=== PATIENT | male | born 1950 | race Caucasian/White ===

== ENCOUNTER → 2017-07-15 | Outpatient (CLI) | payer OTHER ==
[~2017-07-15] MED LIST: DIAZ2TAB PO; IBUP600T44 PO; LISI-725 PO; MULT-506 PO
--- NOTE | 2017-07-15 10:18 | DIAGNOSTIC IMAGING REPORT ---
[facility]UB CLINICAL HISTORY: Nephrolithiasis. FINDINGS: 2 AP supine abdominal radiograph are compared to study dated 07/13/2016. There is a nonobstructed abdominal bowel gas pattern noting moderate colonic fecal retention. A nonobstructing calculus projecting over the lower pole the left kidney which measures up to 9 mm, and this has minimally increased in size from 07/13/2016. An additional punctate nonobstructing calculus projects over the interpolar left kidney. No additional calculi are seen projecting over the right kidney or along the course of the ureters. Cholecystectomy clips are noted. The skeletal structures are osteopenic. The bony structures appear intact. IMPRESSION: 1. There are 2 nonobstructing left renal calculi identified as above. The larger calculus measures 9 mm and appears modestly increased in size from 2016. 2. No additional calculi are identified. 3. Moderate colonic fecal retention. Electronically signed by: Vance Fiore M.D. 07/15/2017 10:17 AM Dictated Date/Time: 07/15/2017 10:15 AM
[2017-07-15 11:34] LABS: ALT/SGPT 18 U/L (12-78); AST/SGOT 14 U/L (15-37); BLOOD UREA NITROGEN 18 mg/dl (7-18); BUN/CREATININE RATIO 15.9 (10-20); CALCIUM 9.2 mg/dl (8.5-10.1); CARBON DIOXIDE 26 mmol/L (21-32); CHLORIDE 107 mmol/L (98-107); CREATININE 1.15 mg/dl (0.60-1.40); GLUCOSE 113 mg/dl (70-99); POTASSIUM 4.8 mmol/L (3.5-5.1); SODIUM 141 mmol/L (136-145)
[2017-07-15 11:37] LABS: ALB/GLOB RATIO 0.9 (0.9-2); ALKALINE PHOSPHATASE 118 U/L (45-117); CHOLESTEROL 100 mg/dl (0-200); CHOLESTEROL/HDL RATIO 2.5; HDL CHOLESTEROL 40 mg/dl; LDL CHOLESTEROL CALCULATED 46 mg/dl; TRIGLYCERIDES 68 mg/dl (0-150); VERY LOW DENSITY LIPOPROT CALC 14 mg/dl
== END | disposition home or self-care (01) ==
LOC: C.RAD 09:33
PROVIDERS: ATTEND Urology
DX: N40.0 Benign prostatic hyperplasia without lower urinary tract symptoms (principal); I25.10 Atherosclerotic heart disease of native coronary artery without angina pectoris; E78.5 Hyperlipidemia, unspecified

== ENCOUNTER 2025-06-25 12:26 | Inpatient (IN) ==
--- NOTE | 2025-06-25 13:16 | XRay Report ---
XR chest 1V portable CLINICAL HISTORY: Sepsis COMPARISON STUDY: 03/09/2021 FINDINGS: Heart size and pulmonary vasculature are normal. Right chest port is stable. No consolidati on or pleural effusion seen. No pneumothorax. IMPRESSION: No acute findings. ACT 112: Negative or not required by law. Electronically signed by: Emmett Cervantes M.D. 06/25/2025 1:15 PM
[2025-06-25 13:35] LABS: Hematocrit (blood only) 25.9 % (42.0-52.0); Hemoglobin 7.9 g/dl (14.0-18.0); Immature Granulocytes # (auto) 0.11 K/uL (0.01-0.20); Immature Granulocytes % (auto) 0.8 %; Mean Corpuscular Hemoglobin 26.8 pg (25.0-34.0); Mean Corpuscular Volume 87.8 fL (80.0-100.0); Platelet Count 320 K/uL (130-400); RDW Standard Deviation 55.8 fL (36.4-46.3); Red Blood Count 2.95 M/uL (4.70-6.10); White Blood Count 13.51 K/ul (4.8-10.8)
[2025-06-25 13:53] LABS: Appearance Urine Clear (Clear); Glucose Urine UA 3+ (Negative)
[2025-06-25 13:59] LABS: Alanine Aminotransferase 42.0 U/L (7-52); Albumin Globulin Ratio 0.6 (0.9-2); Albumin Level 2.9 gm/dl (3.4-5.0); Alkaline Phosphatase 151.0 U/L (34-104); Anion Gap 11.0 (3-11); Bilirubin,Total 0.7 mg/dl (0.2-1.0); Blood Urea Nitrogen 28.0 mg/dl (6-23); Calcium 9.1 mg/dl (8.6-10.3); Carbon Dioxide 21.0 mmol/L (21-32); Chloride 102.0 mmol/L (98-107); Creatinine Clr Calc Pharmacy 54.6 ml/min; Globulin 5.1 gm/dl (2.5-4.0); Glucose 336.0 mg/dl (70-99(Fasting)); Magnesium 1.9 mg/dl (1.7-2.4); Potassium 4.1 mmol/L (3.5-5.1); Sodium 134.0 mmol/L (136-145); Total Protein 8.0 gm/dl (6.0-8.3)
[2025-06-25 14:00] LABS: INR 1.2 (0.9-1.1); Partial Thromboplastin Time 33 Seconds (21-31); Prothrombin Time 12.6 Seconds (9.0-12.0)
[2025-06-25 14:01] LABS: Polychromasia 1+
[2025-06-25] MEDS: PIPERACILLIN/TAZOBACTAM 4.5 GM/100 ML BAG IV ONE (14:10)
[2025-06-25] MEDS: SODIUM CHLORIDE 0.9% 1,000 ML IV ONE (14:10)
--- NOTE | 2025-06-25 14:38 | Emergency Department Note ---
Impression & Plan Acute dyspnea, Symptomatic anemia, GI bleed, Elevated procalcitonin, Hyperglycemia ED Provider Note HISTORY OF PRESENT ILLNESS: Patient is a 75-year-old male presenting with shortness of breath. Patient presents from cardiology due to abnormal vital signs. Patient reports he has been short of breath for a number of weeks. He states that he has gotten progressively more short of breath over the last week or so. He states he has had a cough for the last 3 months. He denies any measured fevers at home. His lock and dam repairer was concerned he might have pneumonia. He denies any chest pain. He reports that shortness of breath is mostly when he is up exerting himself. He does report intermittent episodes of feeling lightheaded and dizzy. He denies any abdominal pain, nausea or vomiting. He denies any obvious melena in his stool. He is on a baby aspirin daily. ROS: as above PHYSICAL EXAM: Constitutional: Patient appears in no acute distress. HENT: Head: Normocephalic and atraumatic. Eyes: EOMI, PERRL Mouth/Throat: Mucous membranes moist. Neck: Trachea midline. Neck supple. Cardiovascular: Tachycardic with regular rhythm. No murmurs, rubs or gallops. Intact distal pulses. Pulmonary/Chest: No respiratory distress. Breath sounds clear and equal bilaterally. No wheezes or rales. Abdominal: Abdomen soft, no tenderness, rebound or guarding. Rectal: Chaperoned by male nursing staff. No palpable masses or hemorrhoids. No gross melena or gross blood on glove. Hemoccult positive. Musculoskeletal: No edema, tenderness or deformity noted. Skin: Warm and dry. No rash, erythema, pallor or cyanosis Psychiatric: Appropriate mood and affect for situation. Neurological: Alert and keenly responsive. CN II-XII grossly intact, moving all extremities equally and fully. MDM: - Vitals signs showed hypotension and tachycardia. - History obtained via patient. History as above. - Chronic conditions affecting care: Iron deficiency anemia; CAD (s/p PCI); HTN; HLD; Hodgkin's lymphoma - Differential diagnoses include, but are not limited to: Congestive heart failure; acute coronary syndrome; COPD/asthma exacerbation; pulmonary edema; pulmonary embolism; pneumonia; pneumothorax; viral syndrome; anemia - Order placed for continuous cardiac monitoring. At this time, monitor showed rate of 115 bpm with normal sinus rhythm, per my interpretation. - External medical records reviewed. Oncology hematology follow-up appointment note dated 02/16/2025 was reviewed. Patient follows in the clinic for his Hodgkin's lymphoma. - EKG image interpreted by myself showed normal sinus rhythm. Rate tachycardic 112 bpm. QT 320. No acute ischemic changes. - Laboratory workup interpreted by myself showed leukocytosis (WBC 13.51); anemia (Hgb 7.9 - decreased from 11.2 on 12/22/24); elevated INR (1.2); hyponatremia (Na 134 -likely pseudohyponatremia in the setting of hyperglycemia); hyperglycemia (glucose 336); normal troponin; elevated procalcitonin (0.83); normal lactate - UA negative for infection - Blood cultures obtained - CXR image reviewed interpreted by myself is made for pneumonia, per my interpretation. - Rectal exam was Hemoccult positive. Patient given 1 L normal saline in the emergency department with improvement in his blood pressures to the low 100s systolic. He was empirically given IV Zosyn for antibiotic coverage. 80 mg IV Protonix ordered. - Type and screen ordered. - Discussion was had with transplant case manager about patient's case and need for admission - Hospitalist consulted for admission - Patient admitted to [facility] for further evaluation and management. 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 H/O excision of mass (12/14/21) Laparoscopic - Jerome Thomason DO converted to Open Biopsy Retroperitoneal Mass - Jerome Thomason DO 12/14/2021 Hypertension (Chronic) Murmur BPH (benign prostatic hyperplasia) Nephrolithiasis Encounter for pre-operative examination Iron refractory iron deficiency anemia SOB (shortness of breath) Arthritis Heart disease Gout Hypercholesterolemia Lymphoma Infection due to Port-A-Cath Encounter for pre-operative examination Retroperitoneal mass Port-A-Cath in place (11/02/20) right side Medical History LV dysfunction BPH (benign prostatic hyperplasia) Murmur Neuropathy Muscle spasm Hx of sleep apnea Hodgkins lymphoma Generalized weakness History of gout Myocardial infarction CAD (coronary artery disease) History of kidney stones Anemia Hyperlipidemia Hypertension Surgical History History of removal of Port-a-Cath S/P lymph node biopsy (09/15/20) History of esophagogastroduodenoscopy (EGD) History of colonoscopy with polypectomy History of tonsillectomy History of cholecystectomy History of wisdom tooth extraction History of tooth extraction History of bilateral cataract extraction History of cardiac cath Family History Uncle Cancer Mother Heart disease Father Hypertension Other No family history of adverse response to anesthesia Social History Smoking Status: Former smoker Second Hand Exposure: No; Do You Dip or Chew Tobacco: No; Hx Alcohol Use: No Hx Substance Use: No Preferred Language: [place] African Communication Ability: Effective 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: No Beliefs That Will Affect Care: None marital status: Current Living Situation: Spouse current occupational status: employed 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 How many Children do You have: 4 Feels Safe at Home: Yes Assistive Devices: Glasses Allergies Allergies Allergy/AdvReac Type Severity Reaction Status Date / Time No Known Allergies Allergy Mild Verified 01/28/25 14:44 Home Meds Home Medications Medication Instructions Recorded Confirmed aspirin 81 mg tablet,delayed 81 mg PO QAM 04/27/20 06/25/25 release diazepam 2 mg tablet 2 mg PO HS PRN LEG CRAMPING 04/27/20 06/25/25 metoprolol succinate 25 mg 25 mg PO QAM 04/27/20 06/25/25 tablet,extended release 24 hr (Toprol XL) pravastatin 20 mg tablet 20 mg PO HS 04/27/20 06/25/25 coQ10 (ubiquinol) 200 mg capsule 200 mg PO QAM 03/02/21 06/25/25 fexofenadine 180 mg tablet 180 mg PO HS 11/14/21 06/25/25 (Saniya Allergy) sacubitril 49 mg-valsartan 51 mg 1 tab PO BID 03/14/22 09/26/25 tablet (Entresto) acetaminophen 650 mg 650 mg PO Q12H 06/25/25 06/25/25 tablet,extended release dapagliflozin propanediol 10 mg 10 mg PO QAM 06/25/25 06/25/25 tablet (Farxiga) vitamin B complex 1 cap PO QAM 06/25/25 06/25/25 Results & Data (ED) Vital Signs Vital Signs - 24 hr 06/25/25 12:35 06/25/25 12:50 06/25/25 12:58 Temperature 36.7 C Temperature Source Oral Pulse Rate 119 H Pulse Rate [Left Finger] 79 Respiratory Rate 22 20 Blood Pressure 77/51 L Blood Pressure [Left Arm] 77/59 L Blood Pressure Mean 59 Blood Pressure Mean [Left Arm] 65 Blood Pressure Position Sitting Pulse Oximetry 97 97 Oxygen Delivery Method Room Air Room Air Sepsis Recent Fever Within 48 Hours No Sepsis New/Unexplained Change in Mental Status No Sepsis Action Taken by Nursing Physician Notified 06/25/25 13:27 06/25/25 14:15 06/25/25 14:20 Temperature Temperature Source Pulse Rate 115 H Pulse Rate [Left Finger] 94 H Respiratory Rate 20 Blood Pressure Blood Pressure [Left Arm] 105/58 L Blood Pressure Mean Blood Pressure Mean [Left Arm] 73 Blood Pressure Position Pulse Oximetry 98 98 Oxygen Delivery Method Room Air Sepsis Recent Fever Within 48 Hours Sepsis New/Unexplained Change in Mental Status Sepsis Action Taken by Nursing Laboratory Data 06/25/25 13:08 06/25/25 13:08 Lab Results 06/25/25 06/25/25 06/25/25 Range/Units 13:08 13:42 14:40 WBC 13.51 H (4.8-10.8) K/ul RBC 2.95 L (4.70-6.10) M/uL Hgb 7.9 L (14.0-18.0) g/dl Hct 25.9 L (42.0-52.0) % MCV 87.8 (80.0-100.0) fL MCH 26.8 (25.0-34.0) pg MCHC 30.5 L (32.0-36.0) g/dL RDW Std Deviation 55.8 H (36.4-46.3) fL RDW Coeff of Derek 17.4 H (11.5-14.5) % Plt Count 320 (130-400) K/uL MPV 9.4 (9.4-12.4) fL Immature Gran % (Auto) 0.8 % Neut % (Auto) 86.3 % Lymph % (Auto) 5.6 % [place] % (Auto) 6.7 % Eos % (Auto) 0.2 % Baso % (Auto) 0.4 % Neut # (Auto) 11.67 H (1.40-6.50) K/uL Lymph # (Auto) 0.75 L (1.20-3.40) K/uL [place] # (Auto) 0.90 H (0.11-0.59) K/uL Eos # (Auto) 0.03 (0.00-0.50) K/uL Baso # (Auto) 0.05 (0.00-0.20) K/uL Immature Gran # (Auto) 0.11 (0.01-0.20) K/uL Polychromasia 1+ PT 12.6 H (9.0-12.0) Seconds INR 1.2 H (0.9-1.1) APTT 33 H (21-31) Seconds PTT Ratio 1.2 Sodium 134 L (136-145) mmol/L Potassium 4.1 (3.5-5.1) mmol/L Chloride 102 (98-107) mmol/L Carbon Dioxide 21 (21-32) mmol/L Anion Gap 11 (3-11) BUN 28 H (6-23) mg/dl Creatinine 1.17 (0.6-1.4) mg/dl Est Cr Clr Drug Dosing 54.6 ml/min eGFR 65.01 BUN/Creatinine Ratio 23.9 H (10-20) Glucose 336 H* (70-99(Fasting)) mg/dl Lactate 1.7 (0.4-2.0) mmol/L Calcium 9.1 (8.6-10.3) mg/dl Magnesium 1.9 (1.7-2.4) mg/dl Total Bilirubin 0.7 (0.2-1.0) mg/dl AST 28 (13-39) U/L ALT 42 (7-52) U/L Alkaline Phosphatase 151 H (34-104) U/L Troponin I High Sens 6.6 (0-20) pg/ml Total Protein 8.0 (6.0-8.3) gm/dl Albumin 2.9 L (3.4-5.0) gm/dl Globulin 5.1 H (2.5-4.0) gm/dl Albumin/Globulin Ratio 0.6 L (0.9-2) Procalcitonin 0.83 H (0-0.5) ng/ml Urine Color Dark Yellow Urine Appearance Clear (Clear) Urine pH 5.5 (4.5-7.5) Ur Specific [place] 1.032 H (1.000-1.030) Urine Protein Negative (Negative) Urine Glucose (UA) 3+ H (Negative) Urine Ketones Negative (Negative) Urine Blood Negative (Negative) Urine Nitrite Negative (Negative) Urine Bilirubin Negative (Negative) Urine Urobilinogen Negative (Negative) Ur Leukocyte Esterase Negative (Negative) Urine Comment POC Stool Occult Blood Positive A (Negative) Administered Medications Discontinued Medications Piperacillin Sod/Tazobactam Sod (Zosyn) 4.5 gm in 100 mls @ 200 mls/hr IV NOW ONE; Protocol Stop: 06/25/25 14:14 Last Admin: 06/25/25 14:10 Dose: 200 mls/hr Documented By: JONG Sodium Chloride (Nss) 1,000 mls @ 999 mls/hr IV .Q1H1M ONE Stop: 06/25/25 14:45 Last Admin: 06/25/25 14:10 Dose: 999 mls/hr Documented By: JONG Imaging Data Radiologist's Impression: Chest X-Ray 06/25/25 12:50 XR chest 1V portable CLINICAL HISTORY: Sepsis COMPARISON STUDY: 03/09/2021 FINDINGS: Heart size and pulmonary vasculature are normal. Right chest port is stable. No consolidation or pleural effusion seen. No pneumothorax. IMPRESSION: No acute findings. ACT 112: Negative or not required by law. Electronically signed by: Emmett Cervantes M.D. 06/25/2025 1:15 PM Discharge Plan Visit Data Chief Complaint: Referred by Doctor Stated Complaint: SOB DOC REFERRAL ED Provider: Luba Baez Discharge Problem: Acute dyspnea, Symptomatic anemia, GI bleed, Elevated procalcitonin, Hyperglycemia Condition: Fair Forms Stand Alone Forms: My [employer] Prescriptions Prescriptions: No Action fexofenadine [Saniya Allergy] 180 mg tablet 180 mg PO HS aspirin 81 mg Tablet,Delayed Release (Dr/Ec) 81 mg PO QAM diazepam 2 mg Tablet 2 mg PO HS PRN (Reason: LEG CRAMPING) pravastatin 20 mg Tablet 20 mg PO HS metoprolol succinate [Toprol XL] 25 mg Tablet Extended Release 24 Hr 25 mg PO QAM coQ10 (ubiquinol) 200 mg Capsule 200 mg PO QAM sacubitril-valsartan [Entresto] 49-51 mg Tablet 1 tab PO BID dapagliflozin propanediol [Farxiga] 10 mg tablet 10 mg PO QAM acetaminophen [Tylenol Arthritis] 650 mg Tablet Extended Release 650 mg PO Q12H vitamin B complex Capsule 1 cap PO QAM Referrals Referrals: Dahlia Carias DO [Primary Care Provider] -
--- NOTE | 2025-06-25 15:49 | History & Physical Report ---
Date of Service June 25, 2025 Assessment & Plan (1) Dyspnea on effort: (2) Acute on chronic systolic CHF (congestive heart failure): (3) Iron refractory iron deficiency anemia: (4) CAD (coronary artery disease): (5) Hodgkins lymphoma: (6) Blood loss anemia: (7) Melena: Plan Is a 75-year-old male with a history of Hodgkin's lymphoma status postchemotherapy, currently in remission, congestive heart failure, CAD status post stent, hypertension, who presents to the hospital on account of worsening shortness of breath. Found to have melena and significant drop in hemoglobin 1. Melena: Patient presents to the hospital with worsening shortness of breath over the past several weeks. Tested positive for occult stool Will consult GI Clear liquid diet, n.p.o. after midnight IV Protonix 2. Blood loss anemia: In November 2024, his hemoglobin was 11.2 Presents today with a hemoglobin of 7.9 Given his significant cardiac history, will transfuse 1 unit of blood to keep it above 8 3. Iron deficiency anemia: Has received iron infusion in the past Will recheck his iron studies Will transfuse iron if necessary 4. Acute on chronic congestive heart failure: Follows up with cardiology outpatient According to the patient they did 2D echo not too long ago He is on Entresto and Farxiga at home Will hold off on diuretics for now 5. CAD: Status post stent Currently on aspirin, will hold in view of GI bleed Continue statin Full code History of Present Illness Chief Complaint: Shortness of breath Primary Care Provider: Dahlia Park Is a 75-year-old male with a history of mild Hodgkin's lymphoma status postchemotherapy, currently in remission, coronary artery disease status post stent, hypertension obstructive sleep apnea arthritis who presents to the hospital today on account of worsening shortness of breath over the past several weeks. According to the patient, he has been having shortness of breath for the past several weeks, worse on exertion. He follows up with cardiology for his routine visits and during the last visit they did echo and some blood work. The revenue liaison told him that his hemoglobin was low and asked him to come to the hospital for further evaluation. Initially they thought he was having pneumonia due to shortness of breath. Here in the emergency department his hemoglobin was 7.9 down from 11.2 in November 2024 his stool was positive for occult blood blood pressure 105/58 pulse 115. Chest x-ray did not show any evidence of acute findings. He will be admitted to the hospital for further management. Allergies Allergy/AdvReac Type Severity Reaction Status Date / Time No Known Allergies Allergy Mild Verified 01/28/25 14:44 Home Medications Medication Instructions Recorded Confirmed Type aspirin 81 mg tablet,delayed 81 mg PO QAM 04/27/20 06/25/25 History release diazepam 2 mg tablet 2 mg PO HS PRN LEG CRAMPING 04/27/20 06/25/25 History metoprolol succinate 25 mg 25 mg PO QAM 04/27/20 06/25/25 History tablet,extended release 24 hr (Toprol XL) pravastatin 20 mg tablet 20 mg PO HS 04/27/20 06/25/25 History coQ10 (ubiquinol) 200 mg capsule 200 mg PO QAM 03/02/21 06/25/25 History fexofenadine 180 mg tablet 180 mg PO HS 11/14/21 06/25/25 History (Saniya Allergy) sacubitril 49 mg-valsartan 51 mg 1 tab PO BID 12/11/21 06/25/25 History tablet (Entresto) acetaminophen 650 mg 650 mg PO Q12H 06/25/25 06/25/25 History tablet,extended release dapagliflozin propanediol 10 mg 10 mg PO QAM 06/25/25 06/25/25 History tablet (Farxiga) vitamin B complex 1 cap PO QAM 06/25/25 06/25/25 History Past Med/Surg History Problem List Melena Blood loss anemia Acute on chronic systolic CHF (congestive heart failure) Dyspnea on effort 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 H/O excision of mass (12/14/21) Laparoscopic - Jerome Thomason DO converted to Open Biopsy Retroperitoneal Mass - Jerome Thomason DO 12/14/2021 Hypertension (Chronic) Murmur BPH (benign prostatic hyperplasia) Nephrolithiasis Encounter for pre-operative examination Iron refractory iron deficiency anemia SOB (shortness of breath) Arthritis Heart disease Gout Hypercholesterolemia Lymphoma Infection due to Port-A-Cath Encounter for pre-operative examination Retroperitoneal mass Port-A-Cath in place (11/02/20) right side Medical History LV dysfunction BPH (benign prostatic hyperplasia) Murmur Neuropathy Muscle spasm Hx of sleep apnea Hodgkins lymphoma Generalized weakness History of gout Myocardial infarction CAD (coronary artery disease) History of kidney stones Anemia Hyperlipidemia Hypertension Surgical History History of removal of Port-a-Cath S/P lymph node biopsy (09/15/20) History of esophagogastroduodenoscopy (EGD) History of colonoscopy with polypectomy History of tonsillectomy History of cholecystectomy History of wisdom tooth extraction History of tooth extraction History of bilateral cataract extraction History of cardiac cath Family History Uncle Cancer Mother Heart disease Father Hypertension Other No family history of adverse response to anesthesia Social History Smoking Status: Former smoker Second Hand Exposure: No; Do You Dip or Chew Tobacco: No; Hx Alcohol Use: No Hx Substance Use: No Preferred Language: [place]ijani Communication Ability: Effective Setter Cold Rolling Machine Required: No Beliefs That Will Affect Care: None marital status: Current Living Situation: Spouse 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 Physical Exam Physical Exam: The patient is awake, alert and oriented 3, well developed and well nourished, normocephalic and atraumatic, lying in bed and in no acute distress. HEENT--PERRL, EOMI, mucous membranes and oropharynx mildly dry Neck--supple. No JVD. No bruits. Thyroid normal, trachea midline, no adenopathy. Heart--normal S1 and S2. No murmurs, rubs or gallops. Lungs--clear bilaterally, no respiratory distress, no accessory muscle use. Abdomen--normal bowel sounds and soft. Extremities--no cyanosis or clubbing. No edema. Dermatologic--normal skin turgor, normal color, no abnormal lymph nodes, no rash. Neurologic--cranial nerves II through XII grossly intact. Rheumatologic--normal range of motion. Psychiatric--normal affect. Results & Data Results & Data Vital Signs (Past 12 Hours) Vital Signs Temp Pulse Pulse Resp BP BP Pulse Ox 06/25/25 14:20 115 H 06/25/25 14:15 94 H 20 105/58 L 98 06/25/25 13:27 98 06/25/25 12:58 79 20 77/59 L 97 06/25/25 12:50 06/25/25 12:35 98.1 F 119 H 22 77/51 L 97 O2 Del Method 06/25/25 14:20 06/25/25 14:15 06/25/25 13:27 Room Air 06/25/25 12:58 06/25/25 12:50 Room Air 06/25/25 12:35 Room Air PG Care Time/CCT Total # of Minutes Spent Total Time Spent with Patient: Total time spent is greater than 50% in coordination of care (as documented) at patient's floor/unit and/or counseling patient: Coding Level of Care Code 32616 INT INP/OBS CARE 3/75MIN Diagnoses Dyspnea on effort R06.09 Acute on chronic systolic CHF (congestive heart failure) I50.23 Iron refractory iron deficiency anemia D50.8 CAD (coronary artery disease) I25.10 Hodgkins lymphoma C81.90 Blood loss anemia D50.0 Melena K92.1 Time Spent (min) 75
[2025-06-25] MEDS ORDERED: SODIUM CHLORIDE 0.9% 100 ML IV PRN (18:42)
[2025-06-25] MEDS: ACETAMINOPHEN 325 MG TAB PO PRN (21:09)
[2025-06-25] MEDS: SODIUM CHLORIDE 0.9% 1,000 ML IV SCH (21:12)
[2025-06-25] MEDS: PRAVASTATIN SOD 20 MG TAB PO SCH (21:13)
[2025-06-26 03:34] LABS: Hematocrit (blood only) 25.4 % (42.0-52.0); Hemoglobin 7.7 g/dl (14.0-18.0)
[2025-06-26] MEDS ORDERED: SODIUM CHLORIDE 0.9% 100 ML IV PRN (04:45)
[2025-06-26] MEDS: METOPROLOL SUCC 25MG EXT REL TAB PO SCH (08:26)
[2025-06-26 09:12] LABS: Hematocrit (blood only) 29.5 % (42.0-52.0); Hemoglobin 8.8 g/dl (14.0-18.0)
--- NOTE | 2025-06-26 09:46 | Hospitalist Progress Note ---
Date of Service June 26, 2025 Assessment & Plan (1) Dyspnea on effort: (2) Acute on chronic systolic CHF (congestive heart failure): (3) Iron refractory iron deficiency anemia: (4) CAD (coronary artery disease): (5) Hodgkins lymphoma: (6) Blood loss anemia: (7) Melena: Plan Is a 75-year-old male with a history of Hodgkin's lymphoma status postchemotherapy, currently in remission, congestive heart failure, CAD status post stent, hypertension, who presents to the hospital on account of worsening shortness of breath. Found to have melena and significant drop in hemoglobin 1. Melena: Patient presents to the hospital with worsening shortness of breath over the past several weeks. Tested positive for occult stool Will consult GI Clear liquid diet, n.p.o. after midnight IV Protonix 2. Blood loss anemia: In November 2024, his hemoglobin was 11.2 Presents with a hemoglobin of 7.9 Given his significant cardiac history, will transfuse 1 unit of blood to keep it above 8 Repeat Hb this morning 8 3. Iron deficiency anemia: Has received iron infusion in the past Will recheck his iron studies Will transfuse iron if necessary 4. Acute on chronic congestive heart failure: Follows up with cardiology outpatient According to the patient they did 2D echo not too long ago He is on Entresto and Farxiga at home Will hold off on diuretics for now 5. CAD: Status post stent Currently on aspirin, will hold in view of GI bleed Continue statin Full code Admission and Anticipated Discharge Date Admission Date: June 25, 2025 Subjective patient seen and examined, no new complaints Review of Systems Review of Systems: All systems reviewed are negative, apart from the ones contained in the history. Physical Exam Physical Exam: The patient is awake, alert and oriented 3, well developed and well nourished, normocephalic and atraumatic, lying in bed and in no acute distress. HEENT--PERRL, EOMI, mucous membranes and oropharynx mildly dry Neck--supple. No JVD. No bruits. Thyroid normal, trachea midline, no adenopathy. Heart--normal S1 and S2. No murmurs, rubs or gallops. Lungs--clear bilaterally, no respiratory distress, no accessory muscle use. Abdomen--normal bowel sounds and soft. Extremities--no cyanosis or clubbing. No edema. Dermatologic--normal skin turgor, normal color, no abnormal lymph nodes, no rash. Neurologic--cranial nerves II through XII grossly intact. Rheumatologic--normal range of motion. Psychiatric--normal affect. Results & Data Results & Data Vital Signs (Past 12 Hours) Vital Signs Temp Pulse Resp BP Pulse Ox O2 Del Method 06/26/25 08:03 Room Air 06/26/25 07:30 98.4 F 88 20 103/66 06/26/25 07:10 86 06/26/25 06:30 98.2 F 88 99/64 L 96 06/26/25 06:00 98.2 F 87 16 102/65 97 06/26/25 05:45 98.2 F 88 16 102/66 96 06/26/25 05:45 98.4 F 87 16 102/66 96 06/26/25 05:27 98.2 F 88 16 104/67 96 06/26/25 02:02 98.2 F 84 16 93/59 L 96 06/26/25 01:00 98.1 F 84 16 91/57 L 97 06/26/25 00:37 94 H 06/26/25 00:00 98.2 F 84 16 89/56 L 96 06/25/25 23:59 98.2 F 84 16 89/56 L 96 06/25/25 23:30 98.6 F 90 16 90/70 L 96 06/25/25 23:29 97.9 F 90 16 91/57 L 96 06/25/25 23:15 98.6 F 90 16 88/57 L 97 06/25/25 23:00 98.6 F 86 16 96/61 L 96 PG Care Time/CCT Total # of Minutes Spent Total Time Spent with Patient: Total time spent is greater than 50% in coordination of care (as documented) at patient's floor/unit and/or counseling patient: Coding Level of Care Code 64233 SUB INP/OBS CARE 2/35MIN Diagnoses Dyspnea on effort R06.09 Acute on chronic systolic CHF (congestive heart failure) I50.23 Iron refractory iron deficiency anemia D50.8 CAD (coronary artery disease) I25.10 Hodgkins lymphoma C81.90 Blood loss anemia D50.0 Melena K92.1 Time Spent (min) 35
--- NOTE | 2025-06-26 09:57 | Gastrointestinal Consultation ---
Date of Consultation June 26, 2025 Assessment & Plan (1) Blood loss anemia: (2) Heme positive stool: Patient admitted with clinically significant anemia. He has not had any gross GI bleeding but does have heme positive stools. He is hemodynamically stable and does not appear to be having an active GI bleed. I am concerned that he has been having a slow GI bleed question secondary from peptic ulcer disease. We will plan for an EGD this morning. He is NPO. He is aware of the risks of the procedure and is agreeable to proceeding. Consent was obtained and is on the chart. History of Present Illness Reason for Consultation: GI bleed Attending Physician: Toby Davis MD History of Present Illness Patient is a very pleasant 75-year-old gentleman with multiple medical problems admitted with progressive shortness of breath and fatigue. He states his symptoms actually started in February but over the summer got progressively worse. He states recently he is unable to walk from 1 room in his house to another without significant shortness of breath. He presented to the emergency room. He was found to be anemic with a hemoglobin of 7.9. BUN elevated at 27. He denies any melanotic stools. He states he did have some looser stools on and Saturday. Normally he is somewhat constipated. He states his appetite has been down over the past several weeks. He has not had any abdominal pain, nausea, or vomiting. He takes a baby aspirin daily but denies any other NSAID use. His last colonoscopy was about 6 years ago. He has never had an endoscopy. Allergies Allergy/AdvReac Type Severity Reaction Status Date / Time No Known Allergies Allergy Mild Verified 01/28/25 14:44 Home Medications Medication Instructions Recorded Confirmed Type aspirin 81 mg tablet,delayed 81 mg PO QAM 04/27/20 06/25/25 History release diazepam 2 mg tablet 2 mg PO HS PRN LEG CRAMPING 04/27/20 06/25/25 History metoprolol succinate 25 mg 25 mg PO QAM 04/27/20 06/25/25 History tablet,extended release 24 hr (Toprol XL) pravastatin 20 mg tablet 20 mg PO HS 04/27/20 06/25/25 History coQ10 (ubiquinol) 200 mg capsule 200 mg PO QAM 03/02/21 06/25/25 History fexofenadine 180 mg tablet 180 mg PO HS 11/14/21 06/25/25 History (Saniya Allergy) sacubitril 49 mg-valsartan 51 mg 1 tab PO BID 12/11/21 06/25/25 History tablet (Entresto) acetaminophen 650 mg 650 mg PO Q12H 06/25/25 06/25/25 History tablet,extended release dapagliflozin propanediol 10 mg 10 mg PO QAM 06/25/25 06/25/25 History tablet (Farxiga) vitamin B complex 1 cap PO QAM 06/25/25 06/25/25 History Patient History Medical History LV dysfunction BPH (benign prostatic hyperplasia) Murmur Neuropathy Muscle spasm Hx of sleep apnea Hodgkins lymphoma Generalized weakness History of gout Myocardial infarction CAD (coronary artery disease) History of kidney stones Anemia Hyperlipidemia Hypertension Surgical History History of removal of Port-a-Cath S/P lymph node biopsy (09/15/20) History of esophagogastroduodenoscopy (EGD) History of colonoscopy with polypectomy History of tonsillectomy History of cholecystectomy History of wisdom tooth extraction History of tooth extraction History of bilateral cataract extraction History of cardiac cath Family History Uncle Cancer Mother Heart disease Father Hypertension Other No family history of adverse response to anesthesia Social History Smoking Status: Former smoker Second Hand Exposure: No; Do You Dip or Chew Tobacco: No; Hx Alcohol Use: No Hx Substance Use: No Preferred Language: Malay Communication Ability: Effective 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 Line Photo Inspector Required: No Beliefs That Will Affect Care: Yarsanism marital status: Current Living Situation: Spouse Current Living Situation Comment: lives with at home current occupational status: employed 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 How many Children do You have: 4 Feels Safe at Home: Yes Assistive Devices: Cane and Glasses Physical Exam Eyes: PERRL, conjunctivae normal, anicteric sclerae ENMT: external ear and nose normal, oropharynx normal Respiratory: normal respiratory effort, lungs clear to auscultation Cardiovascular: RRR, no murmur, no edema Gastrointestinal (Abdomen): normal bowel sounds, soft, nontender, no hepatosplenomegaly Musculoskeletal: no cyanosis or clubbing, extremities motor strength 5/5 Skin: no rashes, warm and dry Results & Data Vital Signs (Past 12 Hours) Vital Signs Temp Pulse Resp BP Pulse Ox O2 Del Method 06/26/25 08:03 Room Air 06/26/25 07:30 36.9 C 88 20 103/66 06/26/25 07:10 86 06/26/25 06:30 36.8 C 88 99/64 L 96 06/26/25 06:00 36.8 C 87 16 102/65 97 06/26/25 05:45 36.8 C 88 16 102/66 96 06/26/25 05:45 36.9 C 87 16 102/66 96 06/26/25 05:27 36.8 C 88 16 104/67 96 06/26/25 02:02 36.8 C 84 16 93/59 L 96 06/26/25 01:00 36.7 C 84 16 91/57 L 97 06/26/25 00:37 94 H 06/26/25 00:00 36.8 C 84 16 89/56 L 96 06/25/25 23:59 36.8 C 84 16 89/56 L 96 06/25/25 23:30 37.0 C 90 16 90/70 L 96 06/25/25 23:29 36.6 C 90 16 91/57 L 96 06/25/25 23:15 37.0 C 90 16 88/57 L 97 06/25/25 23:00 37.0 C 86 16 96/61 L 96 PG Care Time/CCT Total # of Minutes Spent Total Time Spent with Patient: Total time spent is greater than 50% in coordination of care (as documented) at patient's floor/unit and/or counseling patient: [place] [address] IN/OBS CONSULT LVL 4,60M Patient Type New Diagnoses Blood loss anemia D50.0 Heme positive stool R19.5
--- NOTE | 2025-06-26 10:54 | Anesthesiology Consultation ---
Date of Service June 26, 2025 Assessment & Plan Chart Review Chart Review: Acceptable Risk for Surgery and Patient NOT seen in Pre Admission Testing Consults Requested none ASA [id number] Proposed Anesthesia Anesthesia Type: General History Surgery Operation Date: 06/26/25 11:30 Proposed Procedures p EGD EMR Alfreda Gant DO Height/Weight Height: 5 ft 9 in Weight: 82.3 kg Allergies Allergy/AdvReac Type Severity Reaction Status Date / Time No Known Allergies Allergy Mild Verified 01/28/25 14:44 Medications Home Medications Medication Instructions Recorded Confirmed Last Taken aspirin 81 mg tablet,delayed 81 mg PO QAM 04/27/20 06/25/25 06/25/25 release diazepam 2 mg tablet 2 mg PO HS PRN LEG CRAMPING 04/27/20 06/25/25 06/24/25 metoprolol succinate 25 mg 25 mg PO QAM 04/27/20 06/25/25 06/25/25 tablet,extended release 24 hr (Toprol XL) pravastatin 20 mg tablet 20 mg PO HS 04/27/20 06/25/25 06/24/25 coQ10 (ubiquinol) 200 mg capsule 200 mg PO QAM 03/02/21 06/25/25 06/25/25 fexofenadine 180 mg tablet 180 mg PO HS 11/14/21 06/25/25 06/25/25 (Saniya Allergy) sacubitril 49 mg-valsartan 51 mg 1 tab PO BID 12/11/21 06/25/25 06/25/25 tablet (Entresto) acetaminophen 650 mg 650 mg PO Q12H 06/25/25 06/25/25 06/25/25 tablet,extended release dapagliflozin propanediol 10 mg 10 mg PO QAM 06/25/25 06/25/25 06/25/25 tablet (Farxiga) vitamin B complex 1 cap PO QAM 06/25/25 06/25/25 06/25/25 Active Medications Generic Name Dose Route Start Last Admin Trade Name Freq PRN Reason Stop Dose Admin Acetaminophen 650 mg 06/25/25 18:42 06/25/25 21:09 Acetaminophen 325 Mg Tab PO 07/25/25 18:41 650 mg Q4H PRN Administration Pain or Fever Sodium Chloride 1,000 mls @ 80 mls/hr 06/25/25 18:42 06/26/25 08:26 Nss IV 06/28/25 18:41 80 mls/hr .[id number] SINAN Administration Metoprolol Succinate 25 mg 06/26/25 09:00 06/26/25 08:26 Metoprolol Succ 25mg Ext Rel Tab PO 07/26/25 08:59 25 mg QAM SINAN Administration Pravastatin Sodium 20 mg 06/25/25 21:00 06/25/25 21:13 Pravastatin Sod 20 Mg Tab PO 07/25/25 20:59 20 mg HS SINAN Administration Past Medical History Medical History LV dysfunction EF was 25-30% in 09/2020- improved to 45% on 10/26/21 ECHO BPH (benign prostatic hyperplasia) Murmur follows with Dr. Jackman Neuropathy feet Muscle spasm Periodic, diffuse throughout all of body > reason for diazepam Hx of sleep apnea "no longer needs" CPAP after 60lbs weight loss Hodgkins lymphoma Dx 08/2020- Follows with Dr. Macario Villafuerte, no chemo since March 2021 Generalized weakness History of gout Myocardial infarction 2016 > stents CAD (coronary artery disease) S/p stents x2 to prox and mid RCA; total prox LAD occlusion with right to left collaterals (2015)- follows with Dr. Jackman History of kidney stones passed on own Anemia Hyperlipidemia Hypertension ASCVD Ao Obese ICM Hx/o CHF Exercise / Class Metabolic Activity III < 4 Walking/Shop/Light housework Past Family History Family History Uncle Cancer Mother Heart disease Father Hypertension Other No family history of adverse response to anesthesia Past Surgical History Surgical History History of removal of Port-a-Cath Left A port removal (03/03/21): MAC at [facility] S/P lymph node biopsy (09/15/20) Diagnostic Laparoscopy, convert to Open Lymph Node Biopsy Dr. Thomason 09/15/2020 History of esophagogastroduodenoscopy (EGD) History of colonoscopy with polypectomy History of tonsillectomy History of cholecystectomy History of wisdom tooth extraction History of tooth extraction History of bilateral cataract extraction History of cardiac cath 2016 @ [facility] (stents x2) Past Anesthesia History No Hx of Anesthesia Complications and No Family Hx of Anesthesia Complications History of PONV No Hx of PONV and No Hx of Motion Sickness Social History Smoking Status: Former smoker tobacco type: cigarettes Do You Dip or Chew Tobacco: No Hx Alcohol Use: No Hx Substance Use: No substance use type: does not use Physical Exam Vital Signs Last Vital Signs Temp 36.9 C 06/26/25 07:30 Pulse 88 06/26/25 07:30 Resp 20 06/26/25 07:30 BP 103/66 06/26/25 07:30 Pulse Ox 96 06/26/25 06:30 O2 Del Method Room Air 06/26/25 08:03 Testing Laboratory Results 06/26/25 08:54 06/25/25 13:08 PT 12.6 Seconds (9.0-12.0) H 06/25/25 13:08 INR 1.2 (0.9-1.1) H 06/25/25 13:08 APTT 33 Seconds (21-31) H 06/25/25 13:08 Urine Color Dark Yellow 06/25/25 13:42 Urine Appearance Clear (Clear) 06/25/25 13:42 Urine pH 5.5 (4.5-7.5) 06/25/25 13:42 Ur Specific [facility] 1.032 (1.000-1.030) H 06/25/25 13:42 Urine Protein Negative (Negative) 06/25/25 13:42 Urine Glucose (UA) 3+ (Negative) H 06/25/25 13:42 Urine Ketones Negative (Negative) 06/25/25 13:42 Urine Nitrite Negative (Negative) 06/25/25 13:42 Ur Leukocyte Esterase Negative (Negative) 06/25/25 13:42 Blood Type B Positive 06/25/25 18:18 Antibody Screen NEGATIVE 06/25/25 18:18 Electrocardiogram Date: 06/25/25 Findings: + LVH and + ST @ (@ 112;LAD;septal infarct , age ?) Chest X-Ray Date: 06/25/25 Findings: + NAD Echocardiogram Date: 10/26/21 EF: 45% LV Function: dysfunctional (LV mildly dilated) RWMA: + hypokinetic Other Findings: + diastolic dysfunction (Grade 1) Valvular Disease: + MR (moderate MR) TR-mild
[2025-06-26] MEDS ORDERED: PROPOFOL IV EMULSION 10 MG/ML 20 ML VIAL IV ONE (10:57)
[2025-06-26] MEDS ORDERED: LIDOCAINE 2% 2 ML VIAL/AMP(20MG/ML) INFIL ONE (10:57)
[2025-06-26] MEDS ORDERED: ONDANSETRON INJ 2 MG/ML 2 ML VIAL ONE (10:57)
[2025-06-26] MEDS ORDERED: SUCCINYLCHOLINE CHLORIDE 20 MG/ML 10 ML VIAL IV ONE (10:57)
[2025-06-26] MEDS ORDERED: MIDAZOLAM HCL 1 MG/ML 2ML VIAL ONE (10:58)
[2025-06-26] MEDS ORDERED: PHENYLEPHRINE 100MCG/ML 5ML SYR ONE ×2 (11:06→11:46)
[2025-06-26] MEDS ORDERED: ETOMIDATE 2 MG/ML 20 ML VIAL IV ONE (11:06)
[2025-06-26] MEDS ORDERED: FLUMAZENIL 0.1 MG/1 ML 10 ML VIAL IV PRN (11:23)
[2025-06-26] MEDS ORDERED: ATROPINE SULFATE 0.1 MG/ML 10ML SYR IV PRN (11:23)
[2025-06-26] MEDS ORDERED: ONDANSETRON INJ 2 MG/ML 2 ML VIAL IV PRN (11:23)
[2025-06-26] MEDS ORDERED: NALOXONE HCL 0.4 MG/1 ML VIAL/CARP IV PRN (11:23)
[2025-06-26] MEDS ORDERED: PROMETHAZINE HCL 6.25 MG in SODIUM CHLORIDE 0.9% 50 ML IV PRN (11:23)
--- NOTE | 2025-06-26 11:59 | GI REPORT ---
[facility] [address] Patient: AURELIA PATEL : 1950 Sex at : Male Age: 75 Years Procedure: Upper GI endoscopy Date: 06/26/2025 Attending Physician: Lamar Gant DO Referring MD: Referred Self; Toby Davis MD Indications: - Suspected upper gastrointestinal bleeding, patient admitted with significant symptomatic anemia. He was noted to be heme positive. Please see my full consult for complete details. He presents for an EGD today. Medications: - Monitored Anesthesia Care - Propofol per Anesthesia Complications: - No immediate complications. Estimated Blood Loss: - Estimated blood loss: None. Procedure: - ASA Grade Assessment: IV - A patient with severe systemic disease that is a constant threat to life. - The egd scope was introduced through the mouth and advanced to the second part of the duodenum. - The upper GI endoscopy was accomplished without difficulty. - The patient tolerated the procedure well. Findings: - The examined esophagus was normal. - The entire examined stomach was normal. - The examined duodenum was normal. Impression: - Normal esophagus. - Normal stomach. - Normal examined duodenum. - No specimens collected. No source for anemia found on today's exam Recommendation: - Return patient to [facility] for [facility]. - Resume regular diet today. Will start clear liquid diet tomorrow and plan for a colonoscopy on Saturday - Continue present medications. - Perform a colonoscopy at appointment to be scheduled on Saturday. Procedure Code(s): - 52528, Esophagogastroduodenoscopy, flexible, transoral; diagnostic, including collection of specimen(s) by brushing or washing, when performed (separate procedure) CPT(R) - 2023 copyright [employer]. All Rights Reserved. The CPT codes, CCI edits and ICD codes generated are intended as suggestions and were generated based on input data. These codes are preliminary and upon staffing recruiter review may be revised to meet current compliance and payer requirements. The provider is responsible for the final determination of appropriate codes, and modifiers. Lamar Gant DO This document has been electronically signed. Note Initiated:06/26/2025 Note Completed:06/26/2025 11:58 AM [id number]
--- NOTE | 2025-06-26 13:46 | Anesthesiology Progress Note ---
Date of Service June 26, 2025 Anesthesia Post Procedure Vital Signs Vital Signs: Temp Pulse Pulse Pulse Resp BP BP 06/26/25 12:40 81 15 108/66 06/26/25 12:30 36.8 C 79 17 110/66 06/26/25 12:20 81 18 114/65 06/26/25 12:10 83 12 102/64 06/26/25 12:00 36.3 C L 85 17 109/65 06/26/25 08:03 06/26/25 07:30 36.9 C 88 20 103/66 06/26/25 07:10 86 06/26/25 06:30 36.8 C 88 99/64 L 06/26/25 06:00 36.8 C 87 16 102/65 06/26/25 05:45 36.8 C 88 16 102/66 06/26/25 05:45 36.9 C 87 16 102/66 06/26/25 05:27 36.8 C 88 16 104/67 06/26/25 02:02 36.8 C 84 16 93/59 L 06/26/25 01:00 36.7 C 84 16 91/57 L 06/26/25 00:37 94 H 06/26/25 00:00 36.8 C 84 16 89/56 L 06/25/25 23:59 36.8 C 84 16 89/56 L 06/25/25 23:30 37.0 C 90 16 90/70 L 06/25/25 23:29 36.6 C 90 16 91/57 L 06/25/25 23:15 37.0 C 90 16 88/57 L 06/25/25 23:00 37.0 C 86 16 96/61 L 06/25/25 20:00 06/25/25 20:00 36.9 C 18 91/60 L 06/25/25 19:12 06/25/25 19:07 36.8 C 92 H 20 96/64 L 06/25/25 18:42 06/25/25 18:23 37.1 C 89 14 06/25/25 18:14 89 12 96/53 L 06/25/25 18:00 90 12 06/25/25 16:22 86 20 99/58 L 06/25/25 14:20 115 H 06/25/25 14:15 94 H 20 105/58 L Pulse Ox Pulse Ox O2 Del Method O2 Del Method O2 Flow Rate 06/26/25 12:40 95 Room Air 06/26/25 12:30 98 Room Air 06/26/25 12:20 96 Room Air 06/26/25 12:10 100 Oxymask 4 06/26/25 12:00 100 Oxymask 8 06/26/25 08:03 Room Air 06/26/25 07:30 06/26/25 07:10 06/26/25 06:30 96 06/26/25 06:00 97 06/26/25 05:45 96 06/26/25 05:45 96 06/26/25 05:27 96 06/26/25 02:02 96 06/26/25 01:00 97 06/26/25 00:37 06/26/25 00:00 96 06/25/25 23:59 96 06/25/25 23:30 96 06/25/25 23:29 96 06/25/25 23:15 97 06/25/25 23:00 96 06/25/25 20:00 Room Air 06/25/25 20:00 98 Room Air 06/25/25 19:12 Room Air 06/25/25 19:07 99 Room Air 06/25/25 18:42 99 Room Air 06/25/25 18:23 99 Room Air 06/25/25 18:14 97 Room Air 06/25/25 18:00 97 Room Air 06/25/25 16:22 100 Room Air 06/25/25 14:20 06/25/25 14:15 98 Transfer of Care Handoff Completed per policy Notes Mental Status: alert / awake / arousable Patient Amnestic to Procedure: Yes Nausea / Vomiting: adequately controlled Pain: adequately controlled Airway Patency, RR, SpO2: stable & adequate BP & HR: stable & adequate Hydration State: stable & adequate Anesthetic Complications: no major complications apparent
[2025-06-26] MEDS: PANTOprazole 40 MG/10 ML SYR IV SCH (21:02)
[2025-06-27 05:49] LABS: Hematocrit (blood only) 28.3 % (42.0-52.0); Hemoglobin 8.4 g/dl (14.0-18.0); Mean Corpuscular Hemoglobin 26.5 pg (25.0-34.0); Mean Corpuscular Volume 89.3 fL (80.0-100.0); Platelet Count 211 K/uL (130-400); RDW Standard Deviation 54.6 fL (36.4-46.3); Red Blood Count 3.17 M/uL (4.70-6.10); White Blood Count 8.54 K/ul (4.8-10.8)
[2025-06-27 06:04] LABS: Anion Gap 7.0 (3-11); Blood Urea Nitrogen 13.0 mg/dl (6-23); Calcium 8.5 mg/dl (8.6-10.3); Carbon Dioxide 23.0 mmol/L (21-32); Chloride 109.0 mmol/L (98-107); Creatinine Clr Calc Pharmacy 66.5 ml/min; Glucose 133.0 mg/dl (70-99(Fasting)); Immunoglobulin A 67.6 mg/dl (70-400); Potassium 3.7 mmol/L (3.5-5.1); Sodium 139.0 mmol/L (136-145)
[2025-06-27] MEDS ORDERED: Nursing to Pharmacy Communication SCH (08:15)
--- NOTE | 2025-06-27 10:07 | Hospitalist Progress Note ---
Date of Service June 27, 2025 Assessment & Plan (1) Dyspnea on effort: (2) Acute on chronic systolic CHF (congestive heart failure): (3) Iron refractory iron deficiency anemia: (4) CAD (coronary artery disease): (5) Hodgkins lymphoma: (6) Blood loss anemia: (7) Melena: Plan Is a 75-year-old male with a history of Hodgkin's lymphoma status postchemotherapy, currently in remission, congestive heart failure, CAD status post stent, hypertension, who presents to the hospital on account of worsening shortness of breath. Found to have melena and significant drop in hemoglobin 1. Melena: Patient presents to the hospital with worsening shortness of breath over the past several weeks. Tested positive for occult stool EGD did not show any evidence or stigmata of bleed Plan is for Colonoscopy tomorrow Continue bowel prep 2. Blood loss anemia: In November 2024, his hemoglobin was 11.2 Presents with a hemoglobin of 7.9 Hb stable post 2 units of blood Monitor H and H 3. Iron deficiency anemia: Has received iron infusion in the past Will recheck his iron studies Will transfuse iron if necessary 4. Acute on chronic congestive heart failure: Follows up with cardiology outpatient According to the patient they did 2D echo not too long ago He is on Entresto and Farxiga at home Will hold off on diuretics for now 5. CAD: Status post stent Currently on aspirin, will hold in view of GI bleed Continue statin Full code Disposition: Hopefully d/c in the next 48 hrs. For colonoscopy tomorrow Admission and Anticipated Discharge Date Admission Date: June 25, 2025 Subjective patient seen and examined, no new complaints Review of Systems Review of Systems: All systems reviewed are negative, apart from the ones contained in the history. Physical Exam Physical Exam: The patient is awake, alert and oriented 3, well developed and well nourished, normocephalic and atraumatic, lying in bed and in no acute distress. HEENT--PERRL, EOMI, mucous membranes and oropharynx mildly dry Neck--supple. No JVD. No bruits. Thyroid normal, trachea midline, no adenopathy. Heart--normal S1 and S2. No murmurs, rubs or gallops. Lungs--clear bilaterally, no respiratory distress, no accessory muscle use. Abdomen--normal bowel sounds and soft. Extremities--no cyanosis or clubbing. No edema. Dermatologic--normal skin turgor, normal color, no abnormal lymph nodes, no rash. Neurologic--cranial nerves II through XII grossly intact. Rheumatologic--normal range of motion. Psychiatric--normal affect. Results & Data Results & Data Vital Signs (Past 12 Hours) Vital Signs Temp Pulse Pulse Resp BP Pulse Ox O2 Del Method 06/27/25 07:58 97.9 F 81 19 101/65 96 Room Air 06/27/25 07:40 83 06/27/25 03:03 97.7 F 84 20 97/62 L 97 Room Air 06/26/25 23:29 98.2 F 87 20 99/61 L 96 Room Air 06/26/25 23:05 90 PG Care Time/CCT Total # of Minutes Spent Total Time Spent with Patient: Total time spent is greater than 50% in coordination of care (as documented) at patient's floor/unit and/or counseling patient: Coding Level of Care Code 56773 SUB INP/OBS CARE 2/35MIN Diagnoses Dyspnea on effort R06.09 Acute on chronic systolic CHF (congestive heart failure) I50.23 Iron refractory iron deficiency anemia D50.8 CAD (coronary artery disease) I25.10 Hodgkins lymphoma C81.90 Blood loss anemia D50.0 Melena K92.1 Time Spent (min) 35
--- NOTE | 2025-06-27 11:27 | Gastroenterology Progress Note ---
Date of Service June 27, 2025 Assessment & Plan (1) Heme positive stool: (2) Melena: (3) Blood loss anemia: (4) Iron refractory iron deficiency anemia: Plan: Patient admitted with symptomatic anemia. EGD yesterday was unremarkable for any source of bleeding. Will plan for colonoscopy tomorrow. Admission and Anticipated Discharge Date Admission Date: June 25, 2025 Subjective No issues overnight. He denies any gross GI bleeding. His hemoglobin is stable. Physical Exam Constitutional: WD/WN, vitals as above Gastrointestinal (Abdomen): normal bowel sounds, soft, nontender, no hepatosplenomegaly Results & Data Results & Data Vital Signs (Past 12 Hours) Vital Signs Temp Pulse Pulse Resp BP Pulse Ox O2 Del Method 06/27/25 11:16 36.6 C 93 H 20 97/62 L 96 Room Air 06/27/25 07:58 36.6 C 81 19 101/65 96 Room Air 06/27/25 07:40 83 06/27/25 03:03 36.5 C 84 20 97/62 L 97 Room Air 06/26/25 23:29 36.8 C 87 20 99/61 L 96 Room Air Laboratory Results 06/25/25 18:18 Aerobic Blood Culture - Preliminary Blood No growth in Aerobic bottle after 24 hours. Anaerobic Blood Culture - Preliminary No growth in Anaerobic bottle after 24 hours. 06/25/25 18:18 Aerobic Blood Culture - Preliminary Blood No growth in Aerobic bottle after 24 hours. Anaerobic Blood Culture - Preliminary No growth in Anaerobic bottle after 24 hours. 06/27/25 06/26/25 05:24 18:15 WBC 8.54 RBC 3.17 L Hgb 8.4 L Hct 28.3 L MCV 89.3 MCH 26.5 MCHC 29.7 L RDW Std Deviation 54.6 H RDW Coeff of Derek 17.1 H Plt Count 211 MPV 8.7 L Sodium 139 Potassium 3.7 Chloride 109 H Carbon Dioxide 23 Anion Gap 7 BUN 13 Creatinine 0.96 Est Cr Clr Drug Dosing 66.5 eGFR 82.43 BUN/Creatinine Ratio 13.5 Glucose 133 H POC Glucose 157 H Calcium 8.5 L IgA 67.6 L Medications Administered Home Medications Medication Instructions Recorded Confirmed Last Taken aspirin 81 mg tablet,delayed 81 mg PO QAM 04/27/20 06/25/25 06/25/25 release diazepam 2 mg tablet 2 mg PO HS PRN LEG CRAMPING 04/27/20 06/25/25 06/24/25 metoprolol succinate 25 mg 25 mg PO QAM 04/27/20 06/25/25 06/25/25 tablet,extended release 24 hr (Toprol XL) pravastatin 20 mg tablet 20 mg PO HS 04/27/20 06/25/25 06/24/25 coQ10 (ubiquinol) 200 mg capsule 200 mg PO QAM 03/02/21 06/25/25 06/25/25 fexofenadine 180 mg tablet 180 mg PO HS 11/14/21 06/25/25 06/25/25 (Saniya Allergy) sacubitril 49 mg-valsartan 51 mg 1 tab PO BID 12/11/21 06/25/25 06/25/25 tablet (Entresto) acetaminophen 650 mg 650 mg PO Q12H 06/25/25 06/25/25 06/25/25 tablet,extended release dapagliflozin propanediol 10 mg 10 mg PO QAM 06/25/25 06/25/25 06/25/25 tablet (Farxiga) vitamin B complex 1 cap PO QAM 06/25/25 06/25/25 06/25/25 Active Medications Generic Name Dose Route Start Last Admin Trade Name Freq PRN Reason Stop Dose Admin Acetaminophen 650 mg 06/25/25 18:42 06/26/25 21:21 Acetaminophen 325 Mg Tab PO 07/25/25 18:41 650 mg Q4H PRN Administration Pain or Fever Dapagliflozin 10 mg 06/26/25 15:00 06/27/25 08:09 Dapagliflozin (Farxiga) 10 Mg Tab PO 07/26/25 14:59 10 mg QAM SINAN Administration Sodium Chloride 1,000 mls @ 80 mls/hr 06/25/25 18:42 06/27/25 00:06 Nss IV 06/28/25 18:41 80 mls/hr .[id number] SINAN Administration Pantoprazole Sodium 40 mg in 10 mls @ 5 mls/min 06/26/25 21:00 06/26/25 21:02 Protonix IV 07/26/25 20:59 5 mls/min QPM SINAN Administration Metoprolol Succinate 25 mg 06/26/25 09:00 09/28/25 08:09 Metoprolol Succ 25mg Ext Rel Tab PO 07/26/25 08:59 25 mg QAM SINAN Administration Pravastatin Sodium 20 mg 06/25/25 21:00 06/26/25 21:01 Pravastatin Sod 20 Mg Tab PO 07/25/25 20:59 20 mg HS SINAN Administration PG Care Time/CCT Total # of Minutes Spent Total Time Spent with Patient: Total time spent is greater than 50% in coordination of care (as documented) at patient's floor/unit and/or counseling patient: Coding Level of Care Code 13702 SUB INP/OBS CARE 10/24MIN Diagnoses Heme positive stool R19.5 Melena K92.1 Blood loss anemia D50.0 Iron refractory iron deficiency anemia D50.8
[2025-06-27 11:58] LABS: Cdiff Toxin B Gene (2yr or >) Negative Cdiff Gene (Neg)
[2025-06-27] MEDS: LAVAGE SOLUTION 4000ML PO SCH (17:55)
[2025-06-27 20:19] VITALS: O2SAT 96
--- NOTE | 2025-06-27 21:20 | Electrocardiogram Report ---
Test Reason : Blood Pressure : */* mmHG Vent. Rate : 112 BPM Atrial Rate : 112 BPM P-R Int : 142 ms QRS Dur : 74 ms QT Int : 320 ms P-R-T Axes : 22 -40 54 degrees QTcB Int : 436 ms Sinus tachycardia with occasional Premature atrial complexes Left axis deviation Minimal voltage criteria for LVH, may be normal variant ( R in aVL ) Septal infarct (cited on or before 08-Aug-2020) Poor R wave progression, consider anterior CO vs. lead placement vs. LVH Abnormal ECG When compared with ECG of 08-Aug-2020 12:24, Premature ventricular complexes are no longer Present Confirmed by Quique Rico ([id number]) on 06/27/2025 9:20:19 PM Referred By: REFERRED SELF Confirmed By: Quique Rico
[2025-06-28 05:47] LABS: Hematocrit (blood only) 28.3 % (42.0-52.0); Hemoglobin 8.3 g/dl (14.0-18.0); Mean Corpuscular Hemoglobin 26.2 pg (25.0-34.0); Mean Corpuscular Volume 89.3 fL (80.0-100.0); Platelet Count 208 K/uL (130-400); RDW Standard Deviation 53.9 fL (36.4-46.3); Red Blood Count 3.17 M/uL (4.70-6.10); White Blood Count 8.32 K/ul (4.8-10.8)
[2025-06-28 06:03] LABS: Anion Gap 8.0 (3-11); Blood Urea Nitrogen 11.0 mg/dl (6-23); Calcium 8.6 mg/dl (8.6-10.3); Carbon Dioxide 23.0 mmol/L (21-32); Chloride 106.0 mmol/L (98-107); Creatinine Clr Calc Pharmacy 80.3 ml/min; Glucose 136.0 mg/dl (70-99(Fasting)); Potassium 3.5 mmol/L (3.5-5.1); Sodium 137.0 mmol/L (136-145)
--- NOTE | 2025-06-28 07:14 | Anesthesiology Consultation ---
Date of Service June 28, 2025 Assessment & Plan (1) Encounter for pre-operative examination: Chart Review Chart Review: Acceptable Risk for Surgery History Surgery Operation Date: 06/26/25 11:30 Proposed Procedures p EGD EMR Alfreda Gant DO Operation Date: 06/28/25 16:30 Proposed Procedures p Colonoscopy Dr. Nash Cao MD Height/Weight Height: 5 ft 9 in Weight: 88.7 kg Allergies Allergy/AdvReac Type Severity Reaction Status Date / Time No Known Allergies Allergy Mild Verified 01/28/25 14:44 Medications Home Medications Medication Instructions Recorded Confirmed Last Taken aspirin 81 mg tablet,delayed 81 mg PO QAM 04/27/20 06/25/25 06/25/25 release diazepam 2 mg tablet 2 mg PO HS PRN LEG CRAMPING 04/27/20 06/25/25 06/24/25 metoprolol succinate 25 mg 25 mg PO QAM 04/27/20 06/25/25 06/25/25 tablet,extended release 24 hr (Toprol XL) pravastatin 20 mg tablet 20 mg PO HS 04/27/20 06/25/25 06/24/25 coQ10 (ubiquinol) 200 mg capsule 200 mg PO QAM 03/02/21 06/25/25 06/25/25 fexofenadine 180 mg tablet 180 mg PO HS 11/14/21 06/25/25 06/25/25 (Saniya Allergy) sacubitril 49 mg-valsartan 51 mg 1 tab PO BID 12/11/21 06/25/25 06/25/25 tablet (Entresto) acetaminophen 650 mg 650 mg PO Q12H 06/25/25 06/25/25 06/25/25 tablet,extended release dapagliflozin propanediol 10 mg 10 mg PO QAM 06/25/25 06/25/25 06/25/25 tablet (Farxiga) vitamin B complex 1 cap PO QAM 06/25/25 06/25/25 06/25/25 Active Medications Generic Name Dose Route Start Last Admin Trade Name Freq PRN Reason Stop Dose Admin Acetaminophen 650 mg 06/25/25 18:42 06/27/25 21:03 Acetaminophen 325 Mg Tab PO 07/25/25 18:41 650 mg Q4H PRN Administration Pain or Fever Dapagliflozin 10 mg 06/26/25 15:00 06/27/25 08:09 Dapagliflozin (Farxiga) 10 Mg Tab PO 07/26/25 14:59 10 mg QAM SINAN Administration Sodium Chloride 1,000 mls @ 80 mls/hr 06/25/25 18:42 06/28/25 01:45 Nss IV 06/28/25 18:41 80 mls/hr .[id number] SINAN Administration Pantoprazole Sodium 40 mg in 10 mls @ 5 mls/min 06/26/25 21:00 06/27/25 20:20 Protonix IV 07/26/25 20:59 5 mls/min QPM SINAN Administration Metoprolol Succinate 25 mg 06/26/25 09:00 06/27/25 08:09 Metoprolol Succ 25mg Ext Rel Tab PO 07/26/25 08:59 25 mg QAM SINAN Administration Pravastatin Sodium 20 mg 06/25/25 21:00 06/27/25 20:20 Pravastatin Sod 20 Mg Tab PO 07/25/25 20:59 20 mg HS SINAN Administration NPO Date Last Intake of Fluids: 06/26/25 Time Last Intake of Fluids: 09:30 Last Intake of Fluids Comment: ice chips Date Last Intake of Solids: 06/25/25 Time Last Intake of Solids: 21:00 Past Medical History Medical History LV dysfunction EF was 25-30% in 09/2020- improved to 45% on 10/26/21 ECHO BPH (benign prostatic hyperplasia) Murmur follows with Dr. Jackman Neuropathy feet Muscle spasm Periodic, diffuse throughout all of body > reason for diazepam Hx of sleep apnea "no longer needs" CPAP after 60lbs weight loss Hodgkins lymphoma Dx 08/2020- Follows with Dr. Macario Villafuerte, no chemo since March 2021 Generalized weakness History of gout Myocardial infarction 2016 > stents CAD (coronary artery disease) S/p stents x2 to prox and mid RCA; total prox LAD occlusion with right to left collaterals (2015)- follows with Dr. Jackman History of kidney stones passed on own Anemia Hyperlipidemia Hypertension Past Family History Family History Uncle Cancer Mother Heart disease Father Hypertension Other No family history of adverse response to anesthesia Past Surgical History Surgical History History of removal of Port-a-Cath Left A port removal (03/03/21): MAC at [facility] S/P lymph node biopsy (09/15/20) Diagnostic Laparoscopy, convert to Open Lymph Node Biopsy Dr. Thomason 09/15/2020 History of esophagogastroduodenoscopy (EGD) History of colonoscopy with polypectomy History of tonsillectomy History of cholecystectomy History of wisdom tooth extraction History of tooth extraction History of bilateral cataract extraction History of cardiac cath 2016 @ [facility] [place] (stents x2) Social History Smoking Status: Former smoker tobacco type: cigarettes Do You Dip or Chew Tobacco: No Hx Alcohol Use: No Hx Substance Use: No substance use type: does not use Physical Exam Vital Signs Last Vital Signs Temp 36.9 C 06/28/25 03:24 Pulse 88 06/28/25 03:24 Resp 18 06/28/25 03:24 BP 123/74 06/28/25 03:24 Pulse Ox 96 06/28/25 03:24 O2 Del Method Room Air 06/28/25 03:24 O2 Flow Rate 4 06/26/25 12:10 Testing Laboratory Results 06/28/25 05:20 06/28/25 05:20 PT 12.6 Seconds (9.0-12.0) H 06/25/25 13:08 INR 1.2 (0.9-1.1) H 06/25/25 13:08 APTT 33 Seconds (21-31) H 06/25/25 13:08 Urine Color Dark Yellow 06/25/25 13:42 Urine Appearance Clear (Clear) 06/25/25 13:42 Urine pH 5.5 (4.5-7.5) 06/25/25 13:42 Ur Specific Bend 1.032 (1.000-1.030) H 06/25/25 13:42 Urine Protein Negative (Negative) 06/25/25 13:42 Urine Glucose (UA) 3+ (Negative) H 06/25/25 13:42 Urine Ketones Negative (Negative) 06/25/25 13:42 Urine Nitrite Negative (Negative) 06/25/25 13:42 Ur Leukocyte Esterase Negative (Negative) 06/25/25 13:42 Blood Type B Positive 06/25/25 18:18 Antibody Screen NEGATIVE 06/25/25 18:18 06/25/25 18:18 Aerobic Blood Culture - Preliminary Blood No growth in Aerobic bottle after 48 hours. Anaerobic Blood Culture - Preliminary No growth in Anaerobic bottle after 48 hours. 06/25/25 18:18 Aerobic Blood Culture - Preliminary Blood No growth in Aerobic bottle after 48 hours. Anaerobic Blood Culture - Preliminary No growth in Anaerobic bottle after 48 hours. Electrocardiogram Date: 06/25/25 Findings: + poor R wave progression and + ST @ (112 PAC's) Echocardiogram Date: 10/26/21 EF: 45% up from prior in 2020 Valvular Disease: + MR (mild to moderate)
[2025-06-28 08:25] VITALS: TEMP 98.1
--- NOTE | 2025-06-28 10:53 | Communication Note ---
Date of Service: June 28, 2025 Patient did not consume sufficient quantity of bowel prep to undergo his colonoscopy today. Dr. Cao advised cancellation of his procedure. Options include a liquid diet today and completing entire bowel prep for colonoscopy tomorrow vs outpatient colonoscopy. Discussed this with patient who does not care for these options. Patient did not consume even 1/4 of his bowel preparation. He is reporting his stools are sufficiently clear. The importance of a good bowel prep was discussed with the patient. If patient is adamant that he wishes to proceed despite the prep issue, Dr. Cao will attempt but will reserve the right to abort the procedure if he is unable to deliver appropriate care to the patient.
--- NOTE | 2025-06-28 11:55 | History & Physical Bridge Note ---
Date of Service June 28, 2025 History & Physical Bridge Note I have examined the patient, reviewed the History & Physical and in the interval since the performance of the History & Physical I have noted the following changes of clinical significance: no changes noted Patient did not consume sufficient quantity of bowel prep to undergo his colonoscopy today. Dr. Cao advised cancellation of his procedure. Options include a liquid diet today and completing entire bowel prep for colonoscopy tomorrow vs outpatient colonoscopy. Discussed this with patient who does not care for these options. Patient did not consume even 1/4 of his bowel preparation. He is reporting his stools are sufficiently clear. The importance of a good bowel prep was discussed with the patient. If patient is adamant that he wishes to proceed despite the prep issue, Dr. Cao will attempt but will reserve the right to abort the procedure if he is unable to deliver appropriate care to the patient. Supervising Physician Co-Signing Physician Notes Patient discharged prior to being seen. Patient reconsidered the adequacy of his prep. He should have an outpatient colonoscopy. He is aware.
[2025-06-28 12:05] VITALS: BP 110/60; RESP 20
--- NOTE | 2025-06-28 13:22 | Discharge Summary ---
Discharge Summary Date of Service June 28, 2025 Principal Dx & Hospital Course #1 = Principal Diagnosis (1) Dyspnea on effort: (2) Acute on chronic systolic CHF (congestive heart failure): (3) Iron refractory iron deficiency anemia: (4) CAD (coronary artery disease): (5) Hodgkins lymphoma: (6) Blood loss anemia: (7) Melena: Plan Is a 75-year-old male with a history of Hodgkin's lymphoma status postchemotherapy, currently in remission, congestive heart failure, CAD status post stent, hypertension, who presents to the hospital on account of worsening shortness of breath. Found to have melena and significant drop in hemoglobin 1. Melena: Patient presents to the hospital with worsening shortness of breath over the past several weeks. Tested positive for occult stool EGD did not show any evidence or stigmata of bleed Plan was for C-scope but pt did not complete prep and GI recommended tomorrow vs outpatient. pt wishes to proceed as outpatient 2. Blood loss anemia: In November 2024, his hemoglobin was 11.2 Presents with a hemoglobin of 7.9 Hb stable post 2 units of blood Monitor H and H hgb remains stable around 8 3. Iron deficiency anemia: Has received iron infusion in the past Outpatient follow up 4. Chronic congestive heart failure: BNP: 31 Follows up with cardiology outpatient According to the patient they did 2D echo not too long ago He is on Entresto and Farxiga at home Pt does not appear to be in acute exacerbation at this time 5. CAD: Status post stent Currently on aspirin (cont to hold until cleared as outpatient), will hold in view of GI bleed Continue statin Dispo- d/c home with outpatient GI follow up / C-scope, outpatient Hgb follow up Admission HPI Per Admitting Provider Is a 75-year-old male with a history of mild Hodgkin's lymphoma status postchemotherapy, currently in remission, coronary artery disease status post stent, hypertension obstructive sleep apnea arthritis who presents to the hospital today on account of worsening shortness of breath over the past several weeks. According to the patient, he has been having shortness of breath for the past several weeks, worse on exertion. He follows up with cardiology for his routine visits and during the last visit they did echo and some blood work. The inventory control analyst told him that his hemoglobin was low and asked him to come to the hospital for further evaluation. Initially they thought he was having pneumonia due to shortness of breath. Here in the emergency department his hemoglobin was 7.9 down from 11.2 in November 2024 his stool was positive for occult blood blood pressure 105/58 pulse 115. Chest x-ray did not show any evidence of acute findings. He will be admitted to the hospital for further management. Discharge Exam Gen: no acute distress, lying in bed comfortable HEENT: NC/AT, MMM Lungs: nonlabored breathing, diminished breath sounds at the bases, otherwise clear to auscultation CVS: [id number], RRR Abd: nl bowel sounds, soft, NT / ND : no denise Ext: no edema Neuro: AAOx3 Skin: pallor Psych: calm cooperative Discharge Plan Discharge Items Patient Disposition: Home - Self-Care Reason For Visit: DYSPNEA Discharge Diagnosis: Symptomatic anemia Condition on Discharge: Fair Activity: Resume your previous activity Non-emergency contact: Primary Care Provider Call non-emergency contact if: you have any medication questions and your symptoms worsen Follow-up/Referrals: Dahlia Carias DO [Primary Care Provider] - Diet: Regular Addtl Attending Provider Instructions: You were admitted to the hospital for the evaluation of shortness of breath. You were found to have anemia that improved with blood transfusion. You had upper endoscopy, which did not reveal any source of bleeding. Colonoscopy was planned however due to incomplete prep, option was given for procedure the following day vs outpatient. You do not wish to stay in the hospital for another day, so you opted to have the colonoscopy done as outpatient. You will need to have repeat hemoglobin checked in two days. Please have your primary care doctor order this as outpatient. Pending Studies at Discharge: No Stand-Alone Forms: [facility], Smoking Cessation Medications and DC Order Prescriptions: Continued fexofenadine [Saniya Allergy] 180 mg tablet 180 mg PO HS diazepam 2 mg Tablet 2 mg PO HS PRN (Reason: LEG CRAMPING) pravastatin 20 mg Tablet 20 mg PO HS metoprolol succinate [Toprol XL] 25 mg Tablet Extended Release 24 Hr 25 mg PO QAM coQ10 (ubiquinol) 200 mg Capsule 200 mg PO QAM sacubitril-valsartan [Entresto] 49-51 mg Tablet 1 tab PO BID dapagliflozin propanediol [Farxiga] 10 mg tablet 10 mg PO QAM acetaminophen [Tylenol Arthritis] 650 mg Tablet Extended Release 650 mg PO Q12H vitamin B complex Capsule 1 cap PO QAM Held aspirin 81 mg Tablet,Delayed Release (Dr/Ec) 81 mg PO QAM Hold Instructions: Resume on 11/27/25. Until cleared as outpatient. Discharge Orders: Discharge Order (Routine); Ordered 06/28/25 Ordered By: [place] Her Admission Data Admit Date/Time: 06/25/25 15:26 Attending Provider: [place] Her Admit Provider: Toby Davis Primary Care Provider: Dahlia Carias Other Providers: Cornel Villalobos; Lamar Gant Hospital Stay Data Consultations 06/25/25 14:47 ED Decision to Admit Stat 06/25/25 18:42 Consult Gastroenterology Routine Procedures Performed Operation Date: 06/28/25 17:35 <No data on this case meets the specified criteria> Pending Results Patient Have Any Pending Studies at Discharge: No Discharge Instructions Given to Patient (Per Discharging Provider) You were admitted to the hospital for the evaluation of shortness of breath. You were found to have anemia that improved with blood transfusion. You had upper endoscopy, which did not reveal any source of bleeding. Colonoscopy was planned however due to incomplete prep, option was given for procedure the following day vs outpatient. You do not wish to stay in the hospital for another day, so you opted to have the colonoscopy done as outpatient. You will need to have repeat hemoglobin checked in two days. Please have your primary care doctor order this as outpatient. Total Time Total Time Spent Total Time Spent (In Minutes): 45 Coding Level of Care Code 58551 INP/OBS DISCH >30 MIN Diagnoses Dyspnea on effort R06.09 Acute on chronic systolic CHF (congestive heart failure) I50.23 Iron refractory iron deficiency anemia D50.8 CAD (coronary artery disease) I25.10 Hodgkins lymphoma C81.90 Blood loss anemia D50.0 Melena K92.1
[2025-06-28 13:46] VITALS: PULSE 97
== END 2025-06-28 14:26 | disposition home or self-care (01) | DRG 377 ==
LOC: ED 12:26 → SUATTDRO 15:26 → 4W 15:26